=== PATIENT | male | born 1980 | race Caucasian/White ===

== ENCOUNTER 2024-07-08 14:31 | Emergency (ER) | payer SELFPAY ==
[~2024-07-08] VITALS: Ht 162.6 cm; Wt 73.0 kg
[2024-07-08 14:38] VITALS: BP 131/88; PULSE 105; RESP 16; TEMP 98.2; O2SAT 98
== END 2024-07-08 18:16 | disposition left against medical advice (07) ==
LOC: ER 14:31
DX: F10.129 Alcohol abuse with intoxication, unspecified (principal); Z53.21 Procedure and treatment not carried out due to patient leaving prior to being seen by health care provider; Y90.9 Presence of alcohol in blood, level not specified